=== PATIENT | female | born 1955 | race Caucasian/White ===

== ENCOUNTER 2017-09-06 10:51 | Day surgery (SDC) | payer OTHER ==
[2017-09-06] MEDS ORDERED: LIDOCAINE 1% (MPF) 30 ML INJ (12:47)
[2017-09-06] MEDS ORDERED: MIDAZOLAM 1 MG/ML 2 ML INJ (13:03)
[2017-09-06] MEDS: BACITRACIN/POLYMYXIN 28.35 GM OINT TOP (13:45)
[2017-09-06] MEDS: morphine SULFATE/PF (10 MG/10 ML) INJ (13:46)
[2017-09-06] MEDS: ROPIVACAINE 0.5 % 30 ML VIAL (13:51)
[2017-09-06] MEDS ORDERED: PROPOFOL 20 ML (14:11)
[2017-09-06] MEDS ORDERED: LIDOCAINE 2% (SDV) 5 ML INJ (14:11)
[2017-09-06] MEDS ORDERED: CEFAZOLIN 1 GM INJ (14:12)
[2017-09-06] MEDS ORDERED: ONDANSETRON 4 MG INJ (14:12)
[2017-09-06] MEDS ORDERED: ONDANSETRON 4 MG INJ IV (14:30)
[2017-09-06] MEDS ORDERED: METOCLOPRAMIDE 10 MG INJ IV (14:30)
[2017-09-06] MEDS ORDERED: morphine 2 MG INJ IV (14:30)
[2017-09-06] MEDS ORDERED: KETOROLAC 30 MG INJ IV (14:30)
[2017-09-06] MEDS ORDERED: DIPHENHYDRAMINE 50 MG INJ (14:31)
[2017-09-06] MEDS ORDERED: FENTAnyl 50 MCG/ML VIAL (14:31)
[2017-09-06] MEDS: FENTAnyl 50 MCG/ML VIAL IV ×4 (14:45→15:04)
[2017-09-06] MEDS: DIPHENHYDRAMINE 50 MG INJ IV (14:46)
== END 2017-09-06 17:00 | disposition home or self-care (01) ==
LOC: SDS 10:51
DX: S83.281A Other tear of lateral meniscus, current injury, right knee, initial encounter (principal); M94.261 Chondromalacia, right knee; E78.5 Hyperlipidemia, unspecified; E11.9 Type 2 diabetes mellitus without complications; E66.09 Other obesity due to excess calories
CPT/HCPCS: 29881